=== PATIENT | male | born 1965 | race Caucasian/White ===

== ENCOUNTER 2019-04-18 14:21 | Emergency (ER) | payer MEDICAID, SELFPAY ==
[2019-04-18 14:22] VITALS: BP 149/101; PULSE 65; RESP 16; TEMP 36.4; O2SAT 97; BMI 28.5
--- NOTE | 2019-04-18 14:43 | ED.VISSUMM ---
- ER Visit Summary Date of Service: 04/18/19 Chief Complaint: Atraumatic right knee pain History of Present Illness: The patient is a 54 M history of arthritis and gout. Patient states that he has had right knee last 4 to 5 days began gradually last Friday. Denies any fall or trauma. No fever. Is progressively worsened. Is able to walk on it has more pain with weightbearing. Prior history of similar episodes with arthritis and/or gout. He said this joint is not red and does not think this is his gout. Physical Examination: Middle-aged male. No acute distress. Vital signs are stable afebrile. HEENT exam unremarkable. Lungs clear to auscultation. Heart regular rhythm no murmur. Abdomen soft and nontender. Normal bowel sounds no peritoneal signs. Extremities moves all 4. Neurovascular intact. His right hip ankle and foot are nontender neurovascular intact with normal DP pulse, dorsi plantarflexion and he is mildly swollen. With small effusion. And pain with range of motion. There is no redness. There is no cellulitis. This does not appear to be a septic joint appears to be an arthritic joint. Other extremities and joints are nontender nonswollen. Test Results: None Emergency Department Course and Treatment: Patient requested to be placed on prednisone which is worked well for him in the past. He will be given a dose of prednisone 60 mg here in the emergency department. Treatment Plan: Ice to the right knee. Rest. Return if worse or develops a fever or redness. Prednisone 40 mg a day for 1 week. Follow-up if not improving. Disposition: Discharge Impression: Right knee pain secondary to arthritis This note was generated with [employer] dictation software. It may contain incorrect words, spelling, and punctuation that were not noted in review of the chart prior to signing ED Disposition - Plan for ED Patient: Referrals: Chelsea Loving [Primary Care Provider] -
--- NOTE | 2019-04-18 14:46 | ED.DEP ---
ED Disposition - Plan for ED Patient: Disposition: Home or Assisted Living Instructions: ED Osteoarthritis Prescriptions: Prednisone [Deltasone] 40 mg PO DAILY 10 Days #10 tab Prescription Printed Referrals: Chelsea Loving [Primary Care Provider] - 3-5 Days if not improving Additional Instructions: Ice and elevate your right knee.. Prednisone for the inflammation. 40 mg a day for 7 to 10 days. Follow-up with your doctor if not improving or return the ER if feeling worse or develop a fever or severe redness.
[2019-04-18] MEDS: predniSONE 20 MG Tablet 60 MG PO (14:57)
[2019-04-18 15:00] VITALS: BP 128/84; PULSE 70; RESP 18
== END 2019-04-18 15:10 | disposition home or self-care (01) ==
LOC: ED 14:51
PROVIDERS: Emergency Provider Emergency Medicine; Family Provider Nurse Practitioner Family; PCP Nurse Practitioner Family
DX: M13.861 Other specified arthritis, right knee (principal); Z72.0 Tobacco use
CPT/HCPCS: 99283

== ENCOUNTER → 2019-11-04 07:51 | Outpatient (CLI) | payer MEDICAID, SELFPAY ==
--- NOTE | 2019-11-04 15:40 | PFTCOMP ---
COMPLETE PULMONARY FUNCTION TEST INTERPRETATION Brief HPI: Patient is a 54 year old male, currently under the care of Elva Calix, who presents to [facility] for complete pulmonary function tests secondary to diagnosis of possible COPD. Respiratory therapist reports good effort and reproducible results. Interpretation: Forced expiration spirometry shows a mild large airways obstructive ventilatory defect with an FEV1 of 93% predicted. There is a significant bronchodilator response in FEV1 by strict ATS criteria. Spirograms are of good quality and plateau slowly, indicating slowly emptying areas of the lungs. The respiratory flow volume loop shows decreased expiratory flow rates at all lung volumes consistent with airway obstruction. Lung volumes by body plethysmography show a normal total lung capacity at 6.32 L, 89% predicted. All other lung volumes are within normal limits. Diffusion capacity by carbon monoxide is normal at 94% predicted. The airway resistance is elevated. No previous pulmonary function tests were available for review. Impression: Fully reversible mild large airways obstructive ventilatory defect and a pattern consistent with asthma.
== END ==
PROVIDERS: PCP Nurse Practitioner Family; Referring Provider Nurse Practitioner Family; Visit Provider Nurse Practitioner Family
DX: J44.9 Chronic obstructive pulmonary disease, unspecified (principal)
CPT/HCPCS: 94060; 94726; 94729

== ENCOUNTER 2022-10-10 12:50 | Emergency (ER) | payer MEDICAID, SELFPAY ==
[2022-10-10 12:51] VITALS: BP 166/96; PULSE 88; RESP 16; TEMP 36.7; O2SAT 97; BMI 29.6
--- NOTE | 2022-10-10 12:53 | CT_ITS ---
STUDY: CTA CHEST REASON FOR EXAM: Male, 57 years old. ELEVATED D-DIMER RADIATION DOSAGE (If Supplied By Facility): CTDIvol = ( 14.58 ) mGy, DLP = ( 505.23 ) mGycm TECHNIQUE: The examination was performed with the intravenous administration of IV 100mL Isovue-370. Post-processing of the angiographic images was performed, with multiplanar reformation and 3D reconstruction. Individualized dose optimization techniques were used for this CT. COMPARISON: None. FINDINGS: Multiple intraluminal filling defects are seen in the deep distal portion of both the right and left pulmonary artery. These extend into branches of the right and left upper and lower lobe pulmonary arterial branches. Normal thoracic aorta and visualized great vessels. There is no demonstrated aortic dissection. Normal heart and pericardium. Normal mediastinum. Normal hilar regions. Normal visualized trachea and bronchi. The lungs are well expanded. Increased markings at the lung bases with areas of confluence suggestive of bibasilar atelectasis more prominent on the right side. Normal pleura. Normal chest wall structures. Normal osseous structures. Normal visualized upper abdomen. CT/CTA Chest W/WO Contrast IMPRESSION: Multiple bilateral emboli as described. Bibasilar atelectasis more prominent at the right lung base. Electronically Signed: Darren Fierro MD at 13:39 EST ,
--- NOTE | 2022-10-10 14:15 | VDLE_ITS ---
Reason For Study: LEG PAIN RIGHT LEFT GSV is normal. CFV is compressible, spontaneous, competent, CFV is compressible, spontaneous, competent and demonstrates pulsatile venous flow. and demonstrates pulsatile venous flow. Acute deep vein thrombosis is noted in the right femoral vein. Acute deep vein thrombosis is noted in the right popliteal vein. Acute deep vein thrombosis noted in T/P trunk. Acute deep vein thrombosis is noted in the right posterior tibial vein. RT PerV is compressible. Procedure This is a venous duplex using B-mode, color flow and spectral Doppler. Exam performed portable in ED. The exam was diagnostic. A preliminary report was called and/or faxed to Dr. Medina. VL/Venous Duplex US, Unilateral Interpretation Summary Acute deep venous thrombosis right femoral, popliteal, tibioperoneal trunk, and posterior tibial veins. Patent and compressible right great saphenous vein. Pulsatile venous flow noted in the left and right common femoral veins consiste nt with proximal venous hypertension or obstruction. Clinical correlation would be appropriate Ordering Physician: Axel Medina Referring Physician: Theresa Calix Performed By: Freedom Almanzar RVT
--- NOTE | 2022-10-10 14:16 | EX.ED.DYSGE1 ---
HPI History of Present Illness Chief Complaint: Abn Labs Informant: patient and PCP Narrative Narrative: Patient had COVID in August. He has had a lingering cough, and it is not worse or productive except for a couple weeks ago when he coughed up a small amount of blood. That has not happened since. He states that occurred at the same time he had some right posterior rib pain, I had a rib that was out and he saw the chiropractor who put it back in and he has had no pain since then. He states he has also had some pain and swelling in his right lower leg that is not as bad right now but that was a couple weeks ago as well. He has had some dyspnea with exertion but that is always the case, and he states it is only if he exerts himself fairly strenuously. It is no worse. He states his PCP diagnosed him with pre-COPD. He is not on oxygen. He has had no chest pain throughout any of this. He states yesterday followed up with his PCP mainly because of the right leg pain and swelling. They denoted his persistent cough and the fact that he had COVID a couple months ago, and wondered about blood clot so they did some outpatient test that came back today including an abnormal D-dimer at 2862, other normal ranges up to 230. I reviewed these labs. Comprehensive metabolic panel was all normal, he had a CBC that was unremarkable with a white blood count of 7.7 and a hemoglobin of 14.5, platelets 272. I also did a proBNP that returned at 185 which for all intents purposes is normal. They also did a chest x-ray, I reviewed those outpatient results. It shows bibasilar infiltrates versus atelectasis. I do not have the images to review. After receiving these labs/testing his doctor's office sent him here. Patient does not have a history of blood clots or being on any anticoagulant. [facility] Medical History Anxiety Hypertension Home Medications apixaban 5 mg (74 tabs) tablets in a dose pack (Eliquis DVT-PE Treat 30D Start) 5 mg PO BID #74 tabs 10/10/22 [Rx Last Taken Unknown] cholecalciferol (vitamin D3) 125 mcg (5,000 unit) capsule 125 mcg PO DAILY 10/10/22 [History Last Taken Unknown] colchicine 0.6 mg tablet 0.6 mg PO DAILY PRN gout 10/10/22 [History Last Taken Unknown] losartan 25 mg tablet 25 mg PO DAILY 10/10/22 [History Last Taken Unknown] mometasone-formoterol HFA 100 mcg-5 mcg/actuation aerosol inhaler (Dulera) 2 puff inhalation DAILY 10/10/22 [History Last Taken Unknown] sertraline 25 mg tablet 25 mg PO DAILY 10/10/22 [History Last Taken Unknown] Allergy/AdvReac Type Severity Reaction Status Date / Time tetracycline Allergy Rash Verified 04/18/19 14:22 [From Achromycin] Surgical History (Updated 10/10/22 @ 13:31 by Jennifer Garnett) Hx of appendectomy Social History Smoking Status: Current every day smoker tobacco type: cigarettes ROS ROS ED Constitutional Constitutional ED: Denies chills or fever(s) Eyes Eyes: Denies change in vision or diplopia ENT ENT ED: Denies rhinorrhea or sore throat Cardiovascular Cardiovascular: Denies chest pain, lightheadedness, palpitations or syncope Respiratory/Chest Respiratory/Chest: Reports cough, dyspnea on exertion and hemoptysis; Denies dyspnea Gastrointestinal Gastrointestinal: Denies abdominal pain, diarrhea, nausea or vomiting Genitourinary Genitourinary ED: Denies dysuria or hematuria Musculoskeletal Musculoskeletal: Reports back pain and other Details: Right lower leg pain and swelling x couple weeks ; Denies neck pain Integumentary Denies abscess or rash Neurologic Neurologic: Denies headache(s), paresthesias or weakness Psychiatric Psychiatric: Denies anxiety or suicidal thoughts EXAM Physical Exam Const Vital Signs: 10/10/22 12:51 Temperature 98.1 F Temperature Source Temporal Pulse Rate 88 Respiratory Rate 16 Blood Pressure 166/96 H Blood Pressure Mean 119 Pulse Ox 97 Oxygen Delivery Method Room Air Positive well nourished and well developed General Appearance ED: well developed and NAD HEENT Reports moist mucous membranes normocephalic and atraumatic Eyes PERRL and EOMs intact bilaterally Neck full ROM and supple Resp normal respiratory effort and clear to auscultation bilaterally Effort and Inspection: able to speak in complete sentences Cardio regular rate, regular rhythm and no murmurs Rate: Negative for tachycardic GI non-tender and non-distended Auscultation: normoactive bowel sounds Palpation: soft Back/Spine no CVA tenderness General Back: other FROM Extremity normal to inspection Extremity Narrative: Mild right calf tenderness. No palpable cords. General Extremety ED: Yes edema and tenderness; Negative for pulses abnormal General Extremity: edema bilateral lower extremity Details: trace; Negative for pulses abnormal Neuro oriented x3, CN's II-XII intact bilaterally and no sensory deficits noted Sensorium / Orientation: awake and alert Motor Exam: strength 5/5 throughout Skin no rashes or lesions noted and no wounds MDM MDM MDM Narrative Medical decision making narrative: We performed a CTA of the chest here. I reviewed the images, including the lung windows. My interpretation of the CT agrees with that of the radiologist. It shows bilateral pulmonary emboli, and no consolidations to suggest pneumonia. I relayed this to the patient. Since he has been having the right lower extremity symptoms I obtained a duplex ultrasound of the right lower extremity as well as starting him on a apixaban. There were no signs of right heart strain, his vital signs are normal, he is not hypoxic or tachycardic, we discussed reasons to return here but he will be discharged on apixaban. His duplex venous ultrasound of the right lower extremity confirms the presence of DVT, not unexpectedly, which she is being treated for since he is being treated for PE. I reviewed these images. I discharged him prior to the official read returning, which I later reviewed, this was based on the technicians preliminary report. Radiography Diagnostic Testing: Clinical Impression(s) from Imaging Studies Chest CTA 10/10/22 12:53 IMPRESSION: Multiple bilateral emboli as described. Bibasilar atelectasis more prominent at the right lung base. Electronically Signed: Darren Fierro MD at 13:39 EST , Discharge Plan Triage Chief Complaint: Abn Labs ED Provider: Axel Medina Dx/Rx/DC Orders Clinical Impression: Pulmonary emboli, Right leg DVT Instructions: DVT Dc, Embolism Pulmonary Dc, ED Hemoptysis Prescriptions: New Eliquis DVT-PE Treat 30D Start 5 mg (74 tabs) tablets,dose pack 5 mg PO BID Qty: 74 0RF No Action losartan 25 mg tablet 25 mg PO DAILY sertraline 25 mg tablet 25 mg PO DAILY colchicine 0.6 mg tablet 0.6 mg PO DAILY PRN (Reason: gout ) Label Comments: TAKE 1 TABLET DAILY FOR ACUTE GOUT FLARE UP cholecalciferol (vitamin D3) 125 mcg (5,000 unit) capsule 125 mcg PO DAILY Dulera 100-5 mcg/actuation HFA aerosol inhaler 2 puff INHALATION DAILY Label Comments: INHALE 2 PUFF 2 TIMES PER DAY FOR ASTHMA Primary Care Provider: Theresa Calix NP Referrals: Theresa Calix NP, [employer] [Primary Care Provider] - (Follow-up within the next 30 days for reevaluation) Activity Restrictions/Additional Instructions: You were given a dose of Eliquis in the ED, you will start the prescription tomorrow morning, 10/11 Disposition Disposition: Home, Self Care
[2022-10-10] MEDS: APIXABAN 5 MG TABLET PO (14:51)
== END 2022-10-10 15:03 | disposition home or self-care (01) ==
PROVIDERS: Emergency Provider Emergency Medicine; PCP Nurse Practitioner Family; Visit Provider Emergency Medicine
DX: I26.99 Other pulmonary embolism without acute cor pulmonale (principal); I82.401 Acute embolism and thrombosis of unspecified deep veins of right lower extremity; I10 Essential (primary) hypertension; F17.210 Nicotine dependence, cigarettes, uncomplicated; F41.9 Anxiety disorder, unspecified; Z86.16 Personal history of COVID-19; M79.604 Pain in right leg
CPT/HCPCS: 71275; 93971; 99282; Q9967

== ENCOUNTER → 2023-10-13 | Outpatient (CLI) | payer MEDICAID, SELFPAY ==
--- NOTE | 2023-10-13 14:47 | CT_ITS ---
STUDY: CTA CHEST REASON FOR EXAM: Male, 58 years old. ? PE RIGHT LEG DVT RADIATION DOSAGE (If Supplied By Facility): CTDIvol = ( 12.29 ) mGy, DLP = ( 489.13 ) mGycm TECHNIQUE: The examination was performed with the intravenous administration of IV 100mL Isovue-370. Post-processing of the angiographic images was performed, with multiplanar reformation and 3D reconstruction. Individualized dose optimization techniques were used for this CT. COMPARISON: FINDINGS: Normal enhancement of the main pulmonary artery and right and left pulmonary arteries. Normal enhancement of the bilateral peripheral pulmonary arteries. There is no demonstrated pulmonary embolism. Normal thoracic aorta and visualized great vessels. There is no demonstrated aortic dissection. Normal heart and pericardium. Normal mediastinum. Normal hilar regions. Normal visualized trachea and bronchi. The lungs are well expanded. Normal pulmonary parenchyma. Normal pleura. Normal chest wall structures. Normal osseous structures. Normal visualized upper abdomen. CT/CTA Chest W/WO Contrast IMPRESSION: No demonstrated pulmonary embolism or arterial dissection. Electronically Signed: Doe Samuel DO at 16:30 [facility] Reading Location ID and State: [facility] / [place] Tel [phone], Service support ,
--- NOTE | 2023-10-13 14:49 | VDLE_ITS ---
Reason For Study: HX RLE DVT RIGHT LEFT GSV is normal. CFV is compressible, phasic, and INCOMPETENT CFV is compressible, spontaneous, phasic, for greater than 1.0 second. competent and demonstrates normal augmentation. FV is compressible, phasic, and INCOMPETENT for greater than 1.0 second. POP V is compressible, phasic, and INCOMPETENT for greater than 1.0 second. T/P Trunk is compressible. PTV is compressible. RT PerV is compressible. Procedure This is a venous duplex using B-mode, color flow and spectral Doppler. Exam performed in department. The exam was diagnostic. VL/Venous Duplex US, Unilateral Interpretation Summary There is no evidence of right lower extremity deep vein thrombosis. Right great saphenous vein appears patent and compressible segmentally. Incompetent right femoral vein and right popliteal vein Incompetent left common femoral vein Ordering Physician: Theresa Calix Referring Physician: Theresa Calix Performed By: Freedom Almanzar RVT
[2023-10-13 16:04] LABS: CREATININE FINGERSTICK < 1.0 mg/dL (0.70-1.30); EGFR FINGERSTICK > 60.0000 mL/min (>60)
== END | disposition home or self-care (01) ==
PROVIDERS: PCP Nurse Practitioner Family; Referring Provider Nurse Practitioner Family; Visit Provider Nurse Practitioner Family
DX: Z01.812 Encounter for preprocedural laboratory examination (principal); I26.99 Other pulmonary embolism without acute cor pulmonale; I82.401 Acute embolism and thrombosis of unspecified deep veins of right lower extremity
CPT/HCPCS: 71275; 93971; Q9967